=== PATIENT | female | born 1945 | race Caucasian/White ===

== ENCOUNTER 2019-06-17 11:27 | Outpatient (CLI) | payer MEDICARE, OTHER, SELFPAY ==
--- NOTE | 2019-06-17 11:30 | ECG_ITS ---
Measurements Intervals [place] Rate: 66 P: 66 WA: 183 QRS: 21 QRSD: 92 T: 53 QT: 383 QTc: 402 Interpretive Statements SINUS RHYTHM POSSIBLE LEFT ATRIAL ENLARGEMENT RSR' IN V1 OR V2, CONSIDER RIGHT VENTRICULAR HYPERTROPHY OR RIGHT VCD DELAYED PRECORDIAL R/S TRANSITION BASELINE ARTIFACT- I, II, III, AVR, AVL BORDERLINE ECG Electronically Signed On 06-17-2019 13:00:28 CDT by Miguelangel Sheridan D.O.
[2019-06-17 12:21] LABS: Blood Urea Nitrogen 40 mg/dL (7-17); Calcium 9.6 mg/dL (8.4-10.2); Carbon Dioxide 27 mmol/L (22-30); Chloride 101 mmol/L (98-107); Estimated Glomerular Filt Rate > 60; Glucose 107 mg/dL (65-105); Potassium 4.3 mmol/L (3.4-5.0); Sodium 138 mmol/L (137-145)
== END 2019-06-17 11:28 | disposition home or self-care (01) ==
PROVIDERS: Anesthesiology; PCP Family Medicine; Visit Provider Obstetrics & Gynecology Gynecology
DX: I10 Essential (primary) hypertension (principal); Z79.899 Other long term (current) drug therapy; R94.31 Abnormal electrocardiogram [ECG] [EKG]
CPT/HCPCS: 36415; 80048; 86850; 86900; 86901; 93005

== ENCOUNTER 2020-01-25 14:33 | Outpatient (CLI) | payer MEDICARE, OTHER, SELFPAY ==
[2020-01-25 15:04] LABS: Anion Gap 9 mmol/L (8-16); Blood Urea Nitrogen 40 mg/dL (7-17); Calcium 9.8 mg/dL (8.4-10.2); Carbon Dioxide 31 mmol/L (22-30); Chloride 100 mmol/L (98-107); Estimated Glomerular Filt Rate 54; Glucose 150 mg/dL (65-105); Sodium 140 mmol/L (137-145)
== END 2020-01-25 14:34 | disposition home or self-care (01) ==
PROVIDERS: Anesthesiology; PCP Family Medicine; Visit Provider Obstetrics & Gynecology Gynecology
DX: N81.10 Cystocele, unspecified (principal); Z79.899 Other long term (current) drug therapy; Z01.818 Encounter for other preprocedural examination
CPT/HCPCS: 36415; 80048; 86850; 86900; 86901

== ENCOUNTER 2020-01-29 02:02 | Outpatient (CLI) | payer MEDICARE, OTHER, SELFPAY ==
[2020-01-29 18:02] LABS: SARS-CoV-2 RNA PCR Negative
== END 2020-01-29 02:03 | disposition home or self-care (01) ==
PROVIDERS: PCP Family Medicine; Visit Provider Obstetrics & Gynecology Gynecology
DX: Z01.812 Encounter for preprocedural laboratory examination (principal); Z20.828 Contact with and (suspected) exposure to other viral communicable diseases
CPT/HCPCS: 87635; C9803; U0003

== ENCOUNTER 2020-02-01 01:36 | Day surgery (SDC) | payer MEDICARE, OTHER, SELFPAY ==
[2019-06-12 10:55] VITALS: BMI 27.0
[2020-01-22 12:18] VITALS: BMI 25.4
[2020-02-01] VITALS (16 sets, daily range): BP systolic 93–140; BP diastolic 45–65; PULSE 64–87; RESP 12–20; TEMP 36.5–37.1; O2SAT 97–100
[2020-02-01] MEDS: ceFAZolin 2 GM/D5W 50 ML 2 GM/50 ML BAG IVPB (01:12)
--- NOTE | 2020-02-01 08:11 | PM.IMHP ---
H&P: HPI History of Present Illness Date/Time: 02/01/20 08:11 Chief complaint: cystocele, genuine stress incontinence Narrative: Melodie Castillo is a 74 year old female with chronic cystocele and GSI. Patient has been using a pessary with some relief but has decided on surgical repair. Risks of infection, bleeding, injury to organs (juan. bladder, ureters, and bowel), mesh erosion, urinary retention, DVT, and general anesthesia reviewed. retirement success was reviewed. Patient agrees to proceed with anterior vaginal repair and TOT. She is aware Dr. Hernandez will be performing the TOT and has talked with her as well. [facility] Past Medical History Medical History (Updated 02/01/20 @ 08:17 by Vero Viramontes MD) Elevated cholesterol Glaucoma HTN (hypertension) Microscopic hematuria negative work up 2017 (normal spontaneous vaginal delivery) x 3 Surgical History Surgical History (Updated 02/01/20 @ 08:15 by Vero Viramontes MD) S/P cataract surgery Bilateral and LASIK S/P D&C (status post dilation and curettage) x 2 in her 50's Social History Social History Smoking status: Never smoker Drinks per week: 1 Alcohol use details: 1 BEER/WEEK Substance use: never Living arrangements: with family Gender identity (if verbalized by the patient): Female Spiritual care concerns: No Meds Home Medications and Allergies Home Medications Medication Instructions Recorded Confirmed Type atorvastatin 20 mg PO DAILY 06/12/19 01/22/20 History bimatoprost [Lumigan] 1 drp OPHTHALMIC (EYE) DAILY 06/12/19 01/22/20 History cyclosporine [Restasis] 1 drp OPHTHALMIC (EYE) Q12H 06/12/19 01/22/20 History hydrochlorothiazide 12.5 mg PO QAM 06/12/19 01/22/20 History ibandronate 150 mg PO MONTHLY 06/12/19 01/22/20 History metoprolol succinate 12.5 mg PO QAM 06/12/19 01/22/20 History oiucvoxkcimo-Uh-bnuo-minerals 1 tablet PO DAILY 06/12/19 01/22/20 History [Multiple Vitamin, Womens] ascorbic acid (vitamin C) [Vitamin 500 mg PO DAILY 01/22/20 01/22/20 History C] calcium carbonate-vitamin D3 2 tablet PO DAILY 01/22/20 01/22/20 History [Calcium 500 + D] cholecalciferol (vitamin D3) 50 mcg PO DAILY 01/22/20 01/22/20 History [Vitamin D3] zinc 50 mg PO DAILY 01/22/20 01/22/20 History Allergies Allergy/AdvReac Type Severity Reaction Status Date / Time No Known Allergies Allergy Unknown Unverified 01/22/20 12:16 Exam Const: General: healthy appearing and alert Orientation/consciousness: patient oriented x3 Resp: Effort & Inspection: normal respiratory effort Auscultation: clear to auscultation bilaterally Cardio: Rate: regular rate Rhythm: regular rhythm GI: GI Palp: Yes Soft to palpation, No Tenderness to palpation present (GI) and No Palpable mass present : External Female Exam: normal external appearance Speculum Exam - Vagina: normal vaginal discharge and other (3rd degree cystocele) Speculum Exam - Cervix: normal appearance of the cervix Bimanual exam- vagina & uterus: uterine size normal and consistency normal Bimanual Exam- Adnexa, other: normal adnexae and No adnexal tenderness Neuro: General: patient oriented x3 Assessment and Plan Assessment and plan (1) Cystocele: Status: Acute Assessment and Plan: Plan to proceed with anterior vaginal repair (2) GSI (genuine stress incontinence), female: Code(s): N39.3 - Stress incontinence (female) (male) Status: Acute Assessment and Plan: Plan to proceed with TOT with cystoscopy per Dr. Hernandez
--- NOTE | 2020-02-01 08:18 | WPDHPUPDATE1 ---
History and Physical Update Update Date/Time: 02/01/20 08:18 History and Physical has been reviewed, including an updated exam of the patient. There are NO changes in the patient's condition. Risks, benefits, and alternatives have been discussed and questions answered. Patient agrees to proceed with procedure.
[2020-02-01] MEDS: LACTATED RINGERS 1,000 ML 30 ML IV CONT (09:10)
--- NOTE | 2020-02-01 09:11 | WPDANESEPPF ---
Anes - Initial Pre Proc Eval Procedure: Operation Date: 02/01/20 10:30 Proposed Procedures p Anterior Repair - Vero Viramontes MD s Trans Obturator Taping - Qamar Hernandez MD Date/Time: 02/01/20 09:11 Surgeon: Vero Viramontes MD Pre Op Diagnosis: cystocele, genuine stress incontinence Patient Data Age: 74 Gender: F Height: 5 ft 2.5 in Weight: 64 kg Allergies Allergy/AdvReac Type Severity Reaction Status Date / Time No Known Allergies Allergy Unknown Unverified 02/01/20 09:02 Home Medications Medication Instructions Recorded Confirmed Type atorvastatin 20 mg PO DAILY 06/12/19 02/01/20 History bimatoprost [Lumigan] 1 drp OPHTHALMIC (EYE) DAILY 06/12/19 02/01/20 History cyclosporine [Restasis] 1 drp OPHTHALMIC (EYE) Q12H 06/12/19 02/01/20 History hydrochlorothiazide 12.5 mg PO QAM 06/12/19 02/01/20 History ibandronate 150 mg PO MONTHLY 06/12/19 01/22/20 History metoprolol succinate 12.5 mg PO QAM 06/12/19 02/01/20 History byrzkoqvibgu-Om-mgtz-minerals 1 tablet PO DAILY 06/12/19 02/01/20 History [Multiple Vitamin, Womens] ascorbic acid (vitamin C) [Vitamin 500 mg PO DAILY 01/22/20 02/01/20 History C] calcium carbonate-vitamin D3 2 tablet PO DAILY 01/22/20 02/01/20 History [Calcium 500 + D] cholecalciferol (vitamin D3) 50 mcg PO DAILY 01/22/20 02/01/20 History [Vitamin D3] zinc 50 mg PO DAILY 01/22/20 02/01/20 History Patient hx anesthesia problems: none Family hx anesthesia problems: none PMFSH Past Medical History Medical History Elevated cholesterol Glaucoma HTN (hypertension) Microscopic hematuria negative work up 2016 (normal spontaneous vaginal delivery) x 3 Surgical History Surgical History S/P cataract surgery Bilateral and LASIK S/P D&C (status post dilation and curettage) x 2 in her 50's Social History Social History Smoking status: Never smoker Drinks per week: 1 Alcohol use details: 1 BEER/WEEK Substance use: never Living arrangements: with family Gender identity (if verbalized by the patient): Female Spiritual care concerns: No Anes - Eval Final PreProcedure Day of Procedure 02/01/20 09:11 Patient weight: normal Heart: regular rate and rhythm Lungs: clear to auscultation Airway: Mallampati scale class II Neurological: alert and oriented Last oral intake: >/= 8 hours ASA classification: III Emergent: no Anesthetic plan: proceed Anesthesia type and monitoring: general LMA and standard monitoring Informed Consent: The patient's anesthetic plan and its attendant risks and benefits were discussed with the patient/family/POA. Questions were solicited and answers provided to the satisfaction of the patient/family/POA.
--- NOTE | 2020-02-01 11:05 | PM.IMHP ---
H&P: HPI History of Present Illness Date/Time: 02/01/20 11:05 Chief complaint: cystocele, genuine stress incontinence Narrative: Melodie Castillo is a 74 year old female patient of DR. Viramontes with GSI for some time. Patient was using a pessary for a while and desires surgical correction. Review of Systems Review of Systems: All systems reviewed & are unremarkable except as noted in HPI and below PMFSH Past Medical History Medical History Elevated cholesterol Glaucoma HTN (hypertension) Microscopic hematuria negative work up 2017 (normal spontaneous vaginal delivery) x 3 Surgical History Surgical History S/P cataract surgery Bilateral and LASIK S/P D&C (status post dilation and curettage) x 2 in her 50's Social History Social History Smoking status: Never smoker Drinks per week: 1 Alcohol use details: 1 BEER/WEEK Substance use: never Living arrangements: with family Gender identity (if verbalized by the patient): Female Spiritual care concerns: No Meds Home Medications and Allergies Home Medications Medication Instructions Recorded Confirmed Type atorvastatin 20 mg PO DAILY 06/12/19 02/01/20 History bimatoprost [Lumigan] 1 drp OPHTHALMIC (EYE) DAILY 06/12/19 02/01/20 History cyclosporine [Restasis] 1 drp OPHTHALMIC (EYE) Q12H 06/12/19 02/01/20 History hydrochlorothiazide 12.5 mg PO QAM 06/12/19 02/01/20 History ibandronate 150 mg PO MONTHLY 06/12/19 01/22/20 History metoprolol succinate 12.5 mg PO QAM 06/12/19 02/01/20 History hdmielwqlfma-Te-fdzr-minerals 1 tablet PO DAILY 06/12/19 02/01/20 History [Multiple Vitamin, Womens] ascorbic acid (vitamin C) [Vitamin 500 mg PO DAILY 01/22/20 02/01/20 History C] calcium carbonate-vitamin D3 2 tablet PO DAILY 01/22/20 02/01/20 History [Calcium 500 + D] cholecalciferol (vitamin D3) 50 mcg PO DAILY 01/22/20 02/01/20 History [Vitamin D3] zinc 50 mg PO DAILY 01/22/20 02/01/20 History Allergies Allergy/AdvReac Type Severity Reaction Status Date / Time No Known Allergies Allergy Unknown Unverified 02/01/20 09:02 Vital Signs Vital Signs - 24 hr 02/01/20 09:50 Temperature 36.6 C Pulse Rate 69 Respiratory Rate 16 Blood Pressure 114/50 L Pulse Oximetry 100 Exam : External Female Exam: normal external appearance Other: 2-3 cytocele Assessment and Plan Assessment and plan (1) GSI (genuine stress incontinence), female: Code(s): N39.3 - Stress incontinence (female) (male) Status: Acute Assessment and Plan: scheduled for a transobturator taping with cystoscopy. Reviewed procedure with patient in detail and agrees to proceed.
--- NOTE | 2020-02-01 11:08 | WPDHPUPDATE1 ---
History and Physical Update Update Date/Time: 02/01/20 11:08 History and Physical has been reviewed, including an updated exam of the patient. There are NO changes in the patient's condition. Risks, benefits, and alternatives have been discussed and questions answered. Patient agrees to proceed with procedure.
[2020-02-01] MEDS: LIDO 1%/EPINEPHRINE 1:100,000 20 ML VIAL 10 ML INFILTRATE (11:12)
--- NOTE | 2020-02-01 11:55 | PM.PROC ---
Procedure Note - Detailed Date of procedure: 02/01/20 Pre-op diagnosis: cystocele, genuine stress incontinence Post-op diagnosis: same Procedure performed: anterior vaginal repair (per Dr. Viramontes) TOT with cystoscopy (per Dr. Hernandez) Description of procedure: The patient is taken to the operating room placed in the dorsal lithotomy position and placed under anesthesia. She is prepped and draped in the usual sterile fashion. Short weighted speculum was placed posteriorly. The base of the cystocele was grasped at 5 and 7:00 with Allis clamps and the intervening tissue incised with the scalpel. 1% lidocaine with epinephrine is injected in the midline of the cystocele vaginal mucosa. The Metzenbaum scissors are used to undermine the tissue in the midline incising the vaginal mucosa as the tissue is dissected. The vaginal mucosa was grasped laterally on each side with Allis clamps. This is continued until the apex of the cystocele is reached. A single Allis clamp was placed at the apex. The lateral dissection of the vaginal mucosa off of the cystocele is performed using mostly blunt dissection with an open Ray-Rizwan. Some sharp dissection as required at the base of the cystocele. The cystocele was then reduced using 0 Ethibond interrupted horizontal mattress sutures. Excess vaginal mucosa is excised and discarded. Vaginal mucosa was closed using 0 Vicryl in a running locked fashion. The case was then turned over to Dr. Hernandez for the 2nd portion of the case. Please see her dictation for separate details. Anesthesia: GETA Surgeon: Vero Viramontes MD Estimated blood loss (mL): 5 Drains: No Packing: No Pathology: none sent Complications: No immediate complications Condition: stable Disposition: PACU Findings: 3rd degree cystocele pessary in place- staff told to wash and bag and give to patient
--- NOTE | 2020-02-01 12:16 | SUR.OPER ---
EBL: 50cc
--- NOTE | 2020-02-01 12:19 | SUR.OPER ---
corrected ebl:75cc
--- NOTE | 2020-02-01 12:39 | SUR.OPER ---
URINE:50cc
[2020-02-01] MEDS: fentaNYL CITRATE INJ (*CRX) 100 MCG/2 ML VIAL 25 MCG IV PUSH (13:14)
--- NOTE | 2020-02-01 14:05 | PC.NURSE ---
This patient, Melodie Castillo, was received from PACU on 02/01/20 at 1405. Patient/family oriented to unit policies and routines
[2020-02-01] MEDS: KETOROLAC 30 MG/ML VIAL (*BKC) (14:24)
[2020-02-01] MEDS: DEXTROSE 5%/LACTATED RINGERS 1,000 ML 125 ML IV CONT (14:25)
[2020-02-01] MEDS: IBUPROFEN 600 MG TABLET PO (20:35)
[2020-02-01] MEDS: cycloSPORINE 0.4 ML OPHTH SOLUTION 1 DROP EACH EYE (20:35)
[2020-02-01] MEDS: ACETAMINOPHEN 500 MG TABLET 1000 MG PO (20:37)
[2020-02-02] MEDS: ACETAMINOPHEN 500 MG TABLET 1000 MG PO ×2 (05:00→11:54)
[2020-02-02] MEDS: IBUPROFEN 600 MG TABLET PO ×2 (05:00→11:53)
[2020-02-02 05:18] VITALS: BP 104/48; PULSE 71; RESP 18; TEMP 36.6; O2SAT 99
[2020-02-02 07:35] VITALS: BP 108/44; PULSE 67; RESP 16; TEMP 36.8; O2SAT 100
--- NOTE | 2020-02-02 07:44 | PM.GYNPNOP ---
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 Postoperative Procedures: Procedures Operation Date: 02/01/20 10:30 Actual Procedures Side Surgeon p Anterior Repair Not Applicable Vero Viramontes MD s Trans Obturator Taping Not Applicable Qamar Hernandez MD Postoperative day: 1 Postoperative status: doing well Postoperative plan: routine post-op care and discharge (once voids and ambulates) Time Spent With Patient Time: Total time spent is greater than 50% in coordination of care (as documented) at patient's floor/unit and/or counseling patient: Time with patient: less than 15 minutes BOX SEALING MACHINE OPERATOR- PN:Subj Post-Op Subjective Date/time seen: 02/02/20 07:44 Subjective: patient has no complaints and pain is well controlled Exam Narrative: Exam Narrative: abdomen soft nt BOX SEALING MACHINE OPERATOR - PN: Obj Data Vital Signs Vital Signs: Vital Signs - 24 hr 02/01/20 09:50 02/01/20 12:35 02/01/20 12:50 Temperature 97.9 F 97.7 F Pulse Rate 69 78 69 Respiratory Rate 16 12 12 Blood Pressure 114/50 L 140/65 129/55 L Pulse Oximetry 100 100 100 02/01/20 13:00 02/01/20 13:15 02/01/20 13:30 Temperature Pulse Rate 70 66 69 Respiratory Rate 16 12 12 Blood Pressure 129/47 L 129/54 L 123/60 Pulse Oximetry 100 97 97 02/01/20 13:45 02/01/20 14:00 02/01/20 14:17 Temperature 98 F Pulse Rate 66 68 71 Respiratory Rate 12 12 18 Blood Pressure 121/62 110/58 L 125/53 L Pulse Oximetry 100 100 100 02/01/20 14:30 02/01/20 14:45 02/01/20 15:19 Temperature Pulse Rate 67 64 74 Respiratory Rate 18 18 18 Blood Pressure 123/45 L 126/51 L 93/63 L Pulse Oximetry 97 99 99 02/01/20 15:30 02/01/20 16:00 02/01/20 17:00 Temperature 97.9 F Pulse Rate 65 75 80 Respiratory Rate 20 16 16 Blood Pressure 111/49 L 116/49 L 122/56 L Pulse Oximetry 99 99 97 02/01/20 20:00 02/02/20 05:18 Temperature 98.7 F 97.9 F Pulse Rate 87 71 Respiratory Rate 18 18 Blood Pressure 126/62 104/48 L Pulse Oximetry 97 99 Intake/Output Intake/Output: Intake & Output 01/31/20 01/31/20 02/01/20 02/02/20 00:59 23:59 23:59 23:59 Intake Total 2100 200 Output Total 410 900 Balance 1690 -700 Meds/Results Medications: Active Medications Generic Name Dose Route Start Last Admin Trade Name Freq PRN Reason Stop Dose Admin Acetaminophen 1,000 mg 02/01/20 14:02 02/02/20 05:00 Acetaminophen 500 Mg Tablet PO 1,000 mg Q6H PRN Administration Mild Pain (1-3) or Fever Hydrocodone Bitart/Acetaminophen 1 tab 02/01/20 14:02 Hydrocodone/Acetaminophen (*Crx) 5-325 Mg Tablet PO Q3H PRN Pain Rated 5 or Less Atorvastatin Calcium 20 mg 02/02/20 09:00 Atorvastatin 20 Mg Tablet PO DAILY HO[place]AND Cyclosporine 1 drop 02/01/20 21:00 02/01/20 20:35 Cyclosporine 0.4 Ml Ophth Solution EACH EYE 1 drop Q12H [place] Administration Hydrochlorothiazide 12.5 mg 02/02/20 09:00 Hydrochlorothiazide 12.5 Mg Capsule PO QAM [place] Ibuprofen 600 mg 02/01/20 14:02 02/02/20 05:00 Ibuprofen 600 Mg Tablet PO 600 mg Q6H PRN Administration Cramping Ketorolac Tromethamine 15 mg 02/01/20 15:08 Ketorolac 30 Mg/Ml Vial (*Bkc) IV PUSH 02/06/20 14:03 Q6H PRN Pain Rated 4-6 Latanoprost 1 drop 02/02/20 09:00 Latanoprost 0.005% Op Soln 2.5 Ml Btl EACH EYE DAILY [place] Metoprolol Succinate 12.5 mg 02/02/20 09:00 Metoprolol Succinate Ext Rel 12.5 Mg Tabcr PO QAM [place] Naloxone HCl 0.1 mg 02/01/20 14:02 Naloxone Hcl 0.4 Mg/Ml Vial IV PUSH Q2M PRN Respiratory rate less than 10 Ondansetron HCl 4 mg 02/01/20 14:02 Ondansetron Inj 4 Mg/2 Ml Vial IV PUSH Q6H PRN Nausea And Vomiting Simethicone 80 mg 02/01/20 14:02 Simethicone 80 Mg Tab.Chew PO Q2H PRN Gas
--- NOTE | 2020-02-02 07:47 | PM.DS ---
DS: Admitting Diagnosis Admitting Diagnosis Admitting Diagnosis: cystocele; GSI POST OP ANTERIOR REPAIR AND TOT DS: Discharge Diagnosis Discharge Diagnosis (1) GSI (genuine stress incontinence), female: Code(s): N39.3 - Stress incontinence (female) (male) Status: Acute (2) Cystocele: Status: Acute DS: Summary Hospital Course Reason for hospitalization: post op pain management and observation for bleeding Hospital Course: post op course as expected Status at Discharge Functional status at discharge: independent ambulation Overall status at discharge: patient is progressing back to baseline Time Spent with Patient Time attestation: Total time spent providing and/or coordinating discharge services: Discharge Plan Discharge Attending physician on discharge: Vero Viramontes Consulting providers: aQmar Hernandez Discharging Clinician: Vero Viramontes Anticipated Discharge Date/Time: 02/02/20 07:48 Patient Disposition: Home, Self-Care Activity: may drive after 2 weeks and pelvic rest Diet: regular Patient Instructions: Antibiotic Form Stand Alone Forms: General Discharge Information Follow-up/Referrals: Vero Viramontes MD [Physician] - 1 Week Discharge Medications: Continued atorvastatin 20 mg Tablet 20 mg PO DAILY RF: 0 metoprolol succinate 25 mg Tablet Extended Release 24 Hr 12.5 mg PO QAM RF: 0 Multiple Vitamin, Womens Tablet 1 tablet PO DAILY RF: 0 Restasis 0.05 % Dropperette 1 drp OPHTHALMIC (EYE) Q12H RF: 0 ibandronate 150 mg Tablet 150 mg PO MONTHLY RF: 0 hydrochlorothiazide 12.5 mg Tablet 12.5 mg PO QAM RF: 0 Lumigan 0.01 % Drops 1 drp OPHTHALMIC (EYE) DAILY RF: 0 ascorbic acid (vitamin C) [Vitamin C] 500 mg Tablet 500 mg PO DAILY RF: 0 zinc 50 mg Capsule 50 mg PO DAILY RF: 0 calcium carbonate-vitamin D3 [Calcium 500 + D] 500 mg(1,250mg) -200 unit Tablet 2 tablet PO DAILY RF: 0 cholecalciferol (vitamin D3) [Vitamin D3] 50 mcg (2,000 unit) Capsule 50 mcg PO DAILY RF: 0 Date of admission: 02/01/20 14:02 Primary Care Provider: Feroz,Jacques Ferrer Admitting Provider: Vero Viramontes Attending physician on admission: Vero Viramontes Condition: Stable
[2020-02-02] MEDS: ATORVASTATIN 20 MG TABLET PO (08:49)
[2020-02-02] MEDS: cycloSPORINE 0.4 ML OPHTH SOLUTION 1 DROP EACH EYE (08:49)
[2020-02-02] MEDS: hydroCHLOROthiazide 12.5 MG CAPSULE PO (08:50)
--- NOTE | 2020-02-02 09:00 | WPDANESPN ---
Anes - Prog Note Post-Op Date/Time: 02/02/20 09:00 Cardiovascular status: normal Respiratory status: normal Airway patency: baseline Mental status: baseline Post-Op hydration status: normal Vital Signs: Last Vital Signs Temp 36.6 C 02/02/20 05:18 Pulse 71 02/02/20 05:18 Resp 18 02/02/20 05:18 BP 104/48 L 02/02/20 05:18 Pulse Ox 99 02/02/20 05:18 Pain Score (VAS): 04/10 I/O: Intake & Output 02/01/20 02/02/20 02/02/20 23:59 07:59 15:59 Intake Total 2100 200 Output Total 350 900 Balance 1750 -700 Post-procedural complaints: none Patient Feedback: Patient satisfied with anesthetic care.
--- NOTE | 2020-02-02 09:39 | PM.PROC ---
Procedure Note - Detailed Date of procedure: 02/02/20 Pre-op diagnosis: POST OP ANTERIOR REPAIR AND TOT GSI and cystocele Post-op diagnosis: same Procedure performed: Transobturator taping and cystoscopy Description of procedure: Patient had a prior anterior repair with DR. Viramontes please see dictation. patient in lithotomy position.Lidocaine injected at the level of the obturator bilaterally and and the urethreal meatus. incision was made ath the meatus and vaginal mucosa was dissected. the obturator device intoduced ath the obturator canal and exit thru the vaginal opening adjacent to uretha. this was done bilaterally and the mesh taping was attached. the pedroza was removed . the cystocscpe was performed with normal findings the pedroza replace and the Mesh with device was pulled in place making sure proper tension and spacing underneath urethra. The incsion was closed with 3-0 vicryl suture and vagina packed. the stab incision was covered with dermabond. Sponge and needle counts correct x 2. Anesthesia: GLMA Surgeon: Qamar Hernandez MD Estimated blood loss (mL): 75 IV fluids (mL): 200 Urine output (mL): 100 Drains: Yes Packing: Yes Pathology: none sent Complications: None Condition: stable Disposition: PACU Findings: intact bladder normal bilateral normal ureter jets and intact urethra.
--- NOTE | 2020-02-02 12:47 | PC.NURSE ---
1130 pt voided 50cc at about 0900, then 100cc at [address] Viramontes; she called back within 1 minute. advised her of the above information; she ordered bladder scan; if residual more than 50cc,call her back. 1220 Dr. elkins again, with prompt call back; order to place [place] catheter, and send pt home with catheter in place; pt to call office for appointment on , 02-04-2020; she is to clamp catheter 2 hours prior to her appointment.
--- NOTE | 2020-02-02 14:10 | PC.NURSE ---
1250 pt asked to eat lunch prior to catheter being placed. #16 pedroza catheter placed without difficulty; clear yellow urine return, 300cc. Pt tolerated procedure well. Pt was instructed on catheter care, and how to change from larger bag to leg bag. she was told to clamp catheter with a rubber banc 2 hours prior to her appointment with Dr. Viramontes on , 02-03. She voiced understanding of all instructions given.
== END 2020-02-02 14:23 | disposition home or self-care (01) ==
LOC: ANHSURGERY 08:28 → ANHOB2 02-02 07:49
PROVIDERS: Obstetrics & Gynecology; PCP Family Medicine; Visit Provider Obstetrics & Gynecology Gynecology
PROC: (CPT 57260; principal; 2020-02-01 10:30)
PROC: (CPT 57288; 2020-02-01 10:30)
DX: N81.10 Cystocele, unspecified (principal); N39.3 Stress incontinence (female) (male); I10 Essential (primary) hypertension; E78.00 Pure hypercholesterolemia, unspecified; H40.9 Unspecified glaucoma
CPT/HCPCS: 57288; 57240; 99199; A9270; C1771; J0690; J1100; J1885; J2405; J2704; J3010; J7030; J7120; J7121

== ENCOUNTER 2020-02-17 12:19 | Outpatient (CLI) | payer MEDICARE, OTHER, SELFPAY ==
--- NOTE | ~2020-02-17 | MM_ITS ---
EXAMINATION: MM screening gloria BI w radha HISTORY: Screening mammogram TECHNIQUE: Craniocaudal and mediolateral oblique 3-D tomosynthesis images were obtained and synthetic 2-D images were generated. CAD analysis was submitted and interpreted. COMPARISON: 12/26/2018, 12/25/2017, 12/24/2016 bilateral digital screening mammogram examinations BREAST PARENCHYMAL COMPOSITION: There are scattered areas of fibroglandular density. FINDINGS: There is no evidence of suspicious mass, calcification, or architectural distortion to sugg est malignancy in either breast. There has been no suspicious interval change. IMPRESSION: 1. No mammographic evidence of malignancy. 2. Recommend routine screening mammography in one year. BI-RADS Category 1: Negative Reviewed, dictated and finalized at location B. BUSINESS CLERK
== END 2020-02-17 12:20 | disposition home or self-care (01) ==
PROVIDERS: PCP Family Medicine; Visit Provider Family Medicine
DX: Z12.31 Encounter for screening mammogram for malignant neoplasm of breast (principal)
CPT/HCPCS: 77063; 77067

== ENCOUNTER → 2021-02-24 11:10 | Outpatient (CLI) | payer MEDICARE, OTHER, SELFPAY ==
--- NOTE | ~2021-02-24 | DEXA_ITS ---
Bone Density Report Name: GABRIEL PETERSEN Age: 76 Sex: Female Ethnicity: White Date of : 1945 Indication: osteopenia; monitoring treatment; height loss; postmenopausal Referring Provider: DARON HI Study: Bone densitometry was performed. Exam Date: February 24, 2021 Accession number: [id number] Bone Density: Region BMD T-score Z-score Classification AP Spine (L1, L2) 0.727 -2.3 0.0 Osteopenia Femoral Neck (Left) 0.613 -2.1 0.0 Osteopenia Total Hip (Left) 0.812 -1.1 0.8 Osteopenia Femoral Neck (Right) 0.671 -1.6 0.5 Osteopenia Total Hip (Right) 0.853 -0.7 1.1 Normal Total Hip Mean 0.833 -0.9 1.0 Normal World Health Organization criteria for BMD impression classify patients as: Normal (T-score at or above -1.0), Osteopenia (T-score between -1.0 and -2.5), or Osteoporosis (T-score at or below -2.5). 10-year Fracture Risk: FRAX not reported because: Treated for osteoporosis Previous Exams: Region Exam Age BMD T-score BMD Change BMD Change Date g/cm2 vs Baseline vs Previous AP Spine(L1, L2) 02/24/2021 76 0.727 -2.3 -0.008 -0.008 07/11/2018 73 0.736 -2.2 Total Hip(Left) 02/24/2021 76 0.812 -1.1 0.016 0.016 07/11/2018 73 0.795 -1.2 Total Hip(Right) 02/24/2021 76 0.853 -0.7 0.013 0.013 07/11/2018 73 0.840 -0.8 *Denotes significance at 95% confidence level, LSC for AP Spine = 0.022 g/cm2, LSC for Total Hip = 0.027 g/cm2 Clinical Information Provided by Patient: Is being treated for osteoporosis Has used the following medications: Boniva (i.e. ibandronate), Vitamin D, Calcium Patient maximum height was 63.0 Menopause Age: 55 No regular weight bearing exercise Drinks caffeinated beverages Onset of menses at age 11 Number of children 3 Impression: The patient has low bone mass, based on the Total Spine T-score. No significant bone loss was observed. Discussion: PATIENT UNDER TREATMENT WITH NO SIGNIFICANT BMD LOSS SINCE LAST EXAM. In an untreated patient, BMD typically declines with age. A lack of decline or gain is usually a sign that treatment is efficacious and fracture risk is reduced. It is important to ask patients whether they are taking their medications and to encourage continued and appropriate compliance with their osteoporosis therapies to reduce fracture risk. It is also important to review their risk factors and encourage appropriate calcium and vitami
--- NOTE | ~2021-02-24 | MM_ITS ---
EXAMINATION: MM screening gloria BI w radha HISTORY: Screening mammogram TECHNIQUE: Craniocaudal and mediolateral oblique 3-D tomosynthesis images were obtained and synthetic 2-D images were generated. CAD analysis was submitted and interpreted. COMPARISON: 02/17/2020, 12/26/2018, 12/25/2017 bilateral screening mammogram examinations BREAST PARENCHYMAL COMPOSITION: There are scattered areas of fibroglandular density. FINDINGS: There is no evidence of suspicious mass, calcification, or architectural distortion to sugg est malignancy in either breast. There has been no suspicious interval change. IMPRESSION: 1. No mammographic evidence of malignancy. 2. Recommend routine screening mammography in one year. BI-RADS Category 1: Negative Reviewed, dictated and finalized at location A. [employer]
== END ==
PROVIDERS: PCP Family Medicine; Visit Provider Obstetrics & Gynecology Gynecology
DX: Z12.31 Encounter for screening mammogram for malignant neoplasm of breast (principal); Z78.0 Asymptomatic menopausal state; M85.88 Other specified disorders of bone density and structure, other site; M85.852 Other specified disorders of bone density and structure, left thigh; M85.851 Other specified disorders of bone density and structure, right thigh
CPT/HCPCS: 77063; 77067; 77080